=== PATIENT | male | born 1985 | race Caucasian/White ===

== ENCOUNTER 2022-05-01 16:08 | Emergency (ER) | payer OTHER, SELFPAY ==
[2022-05-01 16:19] VITALS: BP 135/87; PULSE 86; RESP 18; TEMP 36.6; O2SAT 100
--- NOTE | 2022-05-01 16:34 | ED.MALEGU ---
HPI - Male Genitourinary General Chief complaint: Urogenital-Male Stated complaint: Male Urogenital Time Seen by Provider: 05/01/22 16:50 Source: patient and RN notes reviewed Mode of arrival: ambulatory Limitations: no limitations History of Present Illness HPI Narrative: 37-year-old male presents with concern for exposure to trichomoniasis. Reports he was notified that a sexual partner tested positive recently. Reports his exposure was approximately 1 week ago. He denies any symptoms. MD Complaint: possible STD exposure Related Data Allergies Allergy/AdvReac Type Severity Reaction Status Date / Time Penicillins Allergy Unknown Swelling Verified 05/01/22 16:42 of Lip/Tongue/Throat Tetracyclines Allergy Unknown HIVES Verified 05/01/22 16:42 Review of Systems Review of Systems: CONSTITUTIONAL: Denies malaise, chills, sweats, or fever. CARDIOVASCULAR: Denies chest pain, palpitations, or edema. RESPIRATORY: Denies cough or dyspnea. GASTROINTESTINAL: Denies abdominal pain, nausea, vomiting, diarrhea GENITOURINARY: Denies dysuria, frequency, urgency, suprapubic pressure. Denies flank pain or hematuria. SKIN: Denies rash or itching. MUSCULOSKELETAL: Denies back pain or myalgia. All systems reviewed & are unremarkable except as noted in HPI and below PMFSH Comments At time of signature, agree with nursing past medical, surgical, social and family history. There is no relevant family history pertinent to the presenting complaint Exam Narrative: GENERAL: Well-appearing, well-nourished, and in no acute distress. HEAD: Normocephalic. EYES: PERRLA, conjunctivae clear. NECK: Supple. No lymphadenopathy CHEST: Clear to auscultation. No respiratory distress. HEART: Regular rate and rhythm. SKIN: Warm, dry, no rash. NEURO: Alert and oriented x3. PSYCH: Normal mood and affect Course Course Emergency Course: Patient is aware of diagnosis, understands and agrees to treatment plan. Anticipatory guidance given. Patient agrees to follow-up as directed and is aware of reasons to seek care at the emergency department. Portions of this record may have been created with voice recognition software Level of Care: Express Care Visit Vital Signs Vital signs: Vital Signs Temperature 97.8 F 05/01/22 16:19 Pulse Rate 86 05/01/22 16:19 Respiratory Rate 18 09/08/22 16:19 Blood Pressure 135/87 05/01/22 16:19 Pulse Oximetry 100 05/01/22 16:19 Oxygen Delivery Room Air 05/01/22 16:19 Temperature 97.8 F 05/01/22 16:19 Pulse Rate 86 05/01/22 16:19 Respiratory Rate 18 05/01/22 16:19 Blood Pressure 135/87 05/01/22 16:19 Pulse Oximetry 100 05/01/22 16:19 Oxygen Delivery Room Air 05/01/22 16:19 Reviewed. MDM - Male Genitourinary MDM Narrative Medical decision making narrative: Exam findings show no acute concerns or changes; patient is non-toxic appearing and is in no distress. Patient is appropriate for outpatient treatment and follow-up. Differential Diagnosis Differential diagnosis: Likely urinary tract infection and urethritis Critical Care Time Critical Care Time Critical Care Time: No Discharge Plan Discharge Clinical Impression: Exposure to STD Patient Disposition: Home, Self-Care Condition: Stable Instructions: Antibiotic Form, Safe Sex Practices (ED) Additional Instructions: You have been tested for potential gonorrhea, chlamydia, and trichomoniasis today. You have received a prescription for antibiotics to treat trichomoniasis. You will receive a phone call in 2-3 days with the results of today's testing; you are positive for gonorrhea or chlamydia appropriate prescriptions will be obtained at that time, you may be required to return for an injection. It is very important that you avoid unprotected intercourse during treatment and for 7 days AFTER TREATMENT is complete and until your partner(s) have been treated. Please encourage your partner(s) to seek testing
== END 2022-05-01 17:20 | disposition home or self-care (01) ==
PROVIDERS: Emergency Provider Nurse Practitioner
DX: Z20.2 Contact with and (suspected) exposure to infections with a predominantly sexual mode of transmission (principal)
CPT/HCPCS: 87491; 87591; 87661; 99213; G0463

== ENCOUNTER 2022-06-03 22:53 | Emergency (ER) | payer OTHER, SELFPAY ==
--- NOTE | ~2022-06-03 | CT_ITS ---
EXAMINATION: CT brain wo con DATE: 06/03/2022 23:50 INDICATION: Head injury. TECHNIQUE: Computed tomography (CT) of the head was performed without intravenous contrast. The mA wa s adjusted according to patient size. Iterative reconstruction technique was employed. The dose-lengt h product was 681.00 mGy-cm. COMPARISON: None FINDINGS: There is no intracranial hemorrhage, acute infarction, or abnormal intracranial mass lesion . There is an empty sella. The ventricles are normal in size. There is a right posterior scalp hemato ma. The orbits are normal. The paranasal sinuses are clear. The mastoid air cells are normal. IMPRESSION: 1. Right posterior scalp hematoma. Reviewed, dictated and finalized at location A.
--- NOTE | ~2022-06-03 | CT_ITS ---
EXAMINATION: CT cervical spine wo con DATE: 06/03/2022 23:51 INDICATION: Posterior neck discomfort. Stiffness. TECHNIQUE: Computed tomography (CT) of the cervical spine was performed without intravenous contrast. Automated exposure control and iterative reconstruction technique were employed. The dose-length pro duct was 425.14 mGy-cm. COMPARISON: None FINDINGS: There is mild kyphosis of cervical spine. Vertebral body heights are normal. There is mildl y decreased disc height at C3-C4. The following disc levels are specifically discussed: C2-C3: There is mild right and moderate left uncovertebral joint osteoarthritis. There is mild bilate ral facet joint osteoarthritis. There is no neural foraminal stenosis. There is no central canal sten osis. C3-C4: There is severe bilateral uncovertebral joint osteoarthritis. There is mild bilateral facet ashia int osteoarthritis. There is mild right and severe left neural foraminal stenosis. There is mild cent ral canal stenosis. C4-C5: There is mild bilateral uncovertebral joint osteoarthritis. There is mild bilateral facet join t osteoarthritis. There is no neural foraminal stenosis. There is mild central canal stenosis. C5-C6: There is mild bilateral uncovertebral joint osteoarthritis. There is mild bilateral facet join t osteoarthritis. There is no neural foraminal stenosis. There is no central canal stenosis. C6-C7: There is moderate right and mild left uncovertebral joint osteoarthritis. There is mild bilate ral facet joint osteoarthritis. There is mild left neural foraminal stenosis. There is mild central c anal stenosis. C7-T1: There is no uncovertebral joint osteoarthritis. There is mild bilateral facet joint osteoarthr itis. There is no neural foraminal stenosis. There is no central canal stenosis. IMPRESSION: 1. No fracture. 2. Moderate cervical spondylosis. Reviewed, dictated and finalized at location A.
[2022-06-03 22:56] VITALS: BP 131/79; PULSE 84; RESP 18; TEMP 36.6; O2SAT 98
--- NOTE | 2022-06-03 23:13 | PC.NURSE ---
EDP at bedside to assess pt.
[2022-06-03] MEDS: ONDANSETRON INJ 4 MG/2 ML VIAL IV PUSH (23:34)
--- NOTE | 2022-06-03 23:47 | ED.HEATRA ---
HPI - Head Injury General Chief complaint: Head Injury Stated complaint: Hit head, repeating self ETOH Time Seen by Provider: 06/03/22 23:11 History of Present Illness HPI Narrative: 37-year-old male presents to the emergency room for evaluation of. Patient states consumed 4 alcoholic beverages a little weed prior to arrival. Patient states this is a normal amount of drinking and recreational drug use on a daily basis. He also states that his significant other was giving him the neck/shoulder massage and that is when he had a syncopal episode. Patient states that he struck his head on the concrete and by standards told him he lost consciousness for about 10 seconds. Patient also reports that bystanders told him that he was confused, making nonsensical statements for about 30 to 45 minutes. Presently patient was alert and oriented x4 with no complaints of pain. Related Data Allergies Allergy/AdvReac Type Severity Reaction Status Date / Time Penicillins Allergy Unknown Swelling Verified 06/03/22 22:56 of Lip/Tongue/Throat Tetracyclines Allergy Unknown HIVES Verified 06/03/22 22:56 Review of Systems Review of Systems: CONSTITUTIONAL: Denies fever, chills, or sweats. EYES: Denies visual changes, redness, or discharge. ENT: Denies rhinorrhea, congestion, sore throat, or otalgia. CARDIOVASCULAR: Denies chest pain, palpitations, or edema. RESPIRATORY: Denies cough or dyspnea. GASTROINTESTINAL: Denies abdominal pain, nausea, vomiting, or diarrhea. GENITOURINARY: Denies dysuria or hematuria. SKIN: Denies rash or itching. MUSCULOSKELETAL: Denies back pain, joint pain, or myalgia. NEUROLOGIC: Denies headache, numbness, dizziness, or weakness. PSYCHIATRIC: Denies anxiety or depression. Exam Narrative: GENERAL: Well-appearing, well-nourished, no physical limitations, and in no acute distress. HEAD: Normocephalic, atraumatic. EYES: Conjunctivae normal, PERRLA and EOMI. ENT: External nose normal, Nares clear, no rhinorrhea or epistaxis. Mucous membranes moist. Oropharynx without tonsillar hypertrophy exudate or other lesions. External ears normal, bilateral TMs normal bilaterally NECK: Supple. CHEST: Clear to auscultation. No respiratory distress. No wheezes rales or rhonchi. No tenderness. HEART: Regular rate and rhythm. No murmur heard. Normal peripheral pulses. ABDOMEN: Soft, nontender, nondistended, normal active bowel sounds. BACK: No cervical/thoracic/lumbar tenderness, step-offs, bony abnormality; c-collar in place EXTREMITIES: Normal range of motion. No edema. No clubbing or cyanosis SKIN: Warm, dry, no rash. No noted wounds NEURO: No focal deficits. Alert and oriented x3. MAEW. CN's II-XI intact bilaterally, normal gait PSYCH: Cooperative. Normal mood and affect. Course Vital Signs Vital signs: Vital Signs Temperature 36.6 C 06/03/22 22:56 Pulse Rate 84 06/03/22 22:56 Respiratory Rate 18 06/03/22 22:56 Blood Pressure 131/79 06/03/22 22:56 Pulse Oximetry 98 06/03/22 22:56 Oxygen Delivery Room Air 06/03/22 22:56 Temperature 36.6 C 06/03/22 22:56 Pulse Rate 84 06/03/22 22:56 Respiratory Rate 18 06/03/22 22:56 Blood Pressure 131/79 06/03/22 22:56 Pulse Oximetry 98 06/03/22 22:56 Oxygen Delivery Room Air 06/03/22 22:56 MDM - Head Injury Lab Data Labs: Lab Results 06/03/22 Range/Units 23:35 Ethyl Alcohol Pending Imaging Data Radiologist's impression: Head/c-spine CT: No acute findings Discharge Plan Discharge Clinical Impression: Closed head injury Patient Disposition: Home, Self-Care Condition: Stable Instructions: Antibiotic Form, Concussion (ED), Head Injury (ED), Post Concussion Syndrome (ED) Prescriptions: New ondansetron 4 mg tablet,disintegrating 4 mg PO Q8H Qty: 14 0RF No Action metronidazole 500 mg tablet 2,000 mg PO ONCE Qty: 4 0RF Follow-up/Referrals: PHYSICIAN,SURGERY TECH [Primary Care Provider] -
[2022-06-03 23:52] LABS: Ethanol 10 mg/dL (<10)
--- NOTE | 2022-06-04 | ECG_ITS ---
Measurements Intervals [place] Rate: 94 P: 44 ME: 167 QRS: 6 QRSD: 107 T: 29 QT: 326 QTc: 408 Interpretive Statements SINUS RHYTHM NO PREVIOUS ECG AVAILABLE FOR COMPARISON Electronically Signed On 06-04-2022 15:15:48 CDT by Peewee Bernstein M.D.
[2022-06-04 00:24] LABS: Add Urine Microscopic? YES; Appearance Urine Cloudy (Clear); Bilirubin Urine Negative (Negative); Blood Urine Negative (Negative); Color Urine Yellow (Yellow); Glucose Urine UA Negative (Negative); Ketones Urine Trace mg/dL (Negative); Leukocyte Esterase Ur Negative LEU/UL (Negative); Mucus Urine Rare /lpf; Nitrate Urine Negative (Negative); Protein Urine Negative (Negative); RBC Urine 0-2 /hpf (0-2); Squamous Epithelial Cell Urine Rare /hpf (Few); Urobilinogen Urine Negative mg/dL (<2.0); WBC Urine 0-3 /hpf
[2022-06-04 00:29] LABS: Basophils Percent Auto 0.3 % (0.2-1.2); Eosinophils Absolute Auto 0.3 K/mm3 (0-0.3); Eosinophils Percent Auto 2.1 % (0-4.4); Hematocrit 45.3 % (42.0-52.0); Hemoglobin 15.3 g/dL (14.0-18.0); Immature Granulocyte Absolute 0.07 K/mm3 (0.00-0.031); Immature Granulocyte Percent A 0.6 % (0-0.5); Lymphocytes Absolute Auto 1.45 K/mm3 (0.9-3.2); Lymphocytes Percent Auto 11.9 % (18.3-44.2); Mean Corpuscular HGB Conc 33.8 g/dl (32-36); Mean Corpuscular Hemoglobin 30.6 pg (26-34); Mean Corpuscular Volume 90.6 fl (80-100); Mean Platelet Volume 9.6 fl (7.4-10.4); Monocytes Absolute Auto 0.6 K/mm3 (0.1-0.6); Monocytes Percent Auto 5.1 % (2.6-8.5); Neutrophils Absolute Auto 9.8 K/mm3 (1.3-6.7); Platelet Count Result 255 k/mm3 (150-375); Red Cell Distribution Width 13.2 % (11.5-14.5); White Blood Count 12.2 K/mm3 (4.5-10.0)
[2022-06-04 00:32] LABS: Partial Thromboplastin Time 28.9 SECONDS (22.3-36.8)
[2022-06-04 00:36] LABS: Amphetamine Screen Urine Negative (Negative); Barbiturate Screen Urine Negative (Negative); Benzodiazepines Screen Urine Negative (Negative); Cannabinoid Screen Urine Positive (Negative); Cocaine Screen Urine Negative (Negative); Methadone Screen Urine Negative (Negative); Opiate Screen Urine Negative (Negative); Phencyclidine Screen Urine Negative (Negative)
[2022-06-04 00:50] LABS: Alanine Aminotransferase 85 U/L (6-50); Albumin Level 4.5 g/dL (3.5-5.1); Alkaline Phosphatase 85 U/L (38-126); Anion Gap 10 mmol/L (8-16); Aspartate Amino Transferase 39 U/L (17-59); Bilirubin,Total 0.3 mg/dL (0.2-1.3); Blood Urea Nitrogen 11 mg/dL (9-20); Calcium 8.7 mg/dL (8.4-10.2); Carbon Dioxide 23 mmol/L (22-30); Chloride 99 mmol/L (98-107); Estimated CRCL calculation 140 ml/min; Estimated Glomerular Filt Rate > 60; Glucose 159 mg/dL (65-110); Potassium 3.5 mmol/L (3.4-5.0); Sodium 132 mmol/L (137-145)
[2022-06-04 01:50] VITALS: BP 131/83; PULSE 92; RESP 16; O2SAT 98
== END 2022-06-04 01:52 | disposition home or self-care (01) ==
PROVIDERS: Emergency Provider Nurse Practitioner Family
DX: S06.9X1A Unspecified intracranial injury with loss of consciousness of 30 minutes or less, initial encounter (principal); W18.39XA Other fall on same level, initial encounter
CPT/HCPCS: 36415; 70450; 72125; 80053; 80307; 81001; 85025; 85610; 85730; 93005; 96374; 99284; J2405